=== PATIENT | female | born 1960 | race Caucasian/White ===

== ENCOUNTER 2020-12-01 14:19 | Emergency (ER) | payer BC ==
[~2020-12-01 14:19] MED LIST: ALDACTONE25 MG PO; AMIODARONE HCL200 MG PO; ASPIR 8181 MG PO; COUMADIN4 MG PO; IBUPROFEN800 MG PO; LASIX40 MG PO; LOPRESSOR 25 MG25 MG PO
[2020-12-01 17:48] LABS: RED BLOOD COUNT 4.68 M/UL (4.00-5.10); WHITE BLOOD COUNT 6.1 K/UL (4.5-11.0)
[2020-12-01 18:07] LABS: BUN/CREATININE RATIO 22 (0-10)
== END 2020-12-01 21:27 | disposition home or self-care (01) ==
LOC: ER1 14:19
PROVIDERS: Preventive Medicine Occupational Medicine
DX: R00.2 Palpitations (principal); I10 Essential (primary) hypertension; Z88.2 Allergy status to sulfonamides
CPT/HCPCS: 71045; 80053; 82550; 82553; 83690; 83874; 84439; 84443; 84484; 85025; 85379; 86140; 93005; 99285

== ENCOUNTER → 2021-07-18 | Outpatient (CLI) | payer BC | LOC: HEART 5 14:55 | DX: I49.3 Ventricular premature depolarization (principal); I34.0 Nonrheumatic mitral (valve) insufficiency; I51.7 Cardiomegaly; Z98.890 Other specified postprocedural states | CPT/HCPCS: 93306 ==

== ENCOUNTER → 2021-10-01 | Outpatient (CLI) | payer BC | LOC: HEART 5 08:40 | DX: I49.3 Ventricular premature depolarization (principal); I47.2 Ventricular tachycardia | CPT/HCPCS: 78452; A9502; J2785 ==

== ENCOUNTER → 2022-05-08 | Outpatient (CLI) | payer BC | LOC: HEART 5 05-01 09:00 | DX: R00.2 Palpitations (principal); I47.1 Supraventricular tachycardia ==